=== PATIENT | female | born 1975 ===

== ENCOUNTER 2016-07-02 22:55 | Emergency (ER) | payer SELFPAY ==
[~2016-07-02] VITALS: Ht 157.5 cm; Wt 59.0 kg
[2016-07-02 23:01] VITALS: BP 137/94; PULSE 122; RESP 24; O2SAT 98
[2016-07-03 01:02] VITALS: BP 132/64; PULSE 78; RESP 14; O2SAT 96
[2016-07-03 01:26] LABS: BASOPHILS % (AUTO) 0.2 % (0-3); EOSINOPHILS % (AUTO) 0.1 % (0-5); MONOCYTES % (AUTO) 4.7 % (4-12); Mean Corpuscular Hemoglobin 25.5 pg (27.0-35.0); Mean Corpuscular Volume 78.1 fL (81-100); NEUTROPHILS % (AUTO) 81.1 % (40-74); Platelet Count 408 bil/L (150-400)
--- NOTE | 2016-07-03 02:27 | ED.REPORT ---
HPI-Abd Pain F 40 and Over Date of Service Jul 03, 2016 ED Provider: Wan Jeffers MD 41 year old female with a history of opioid dependence on Suboxone presents to the ED with five days of nausea and vomiting. Associated symptom of abdominal pain. Patient denies diarrhea. She does not voice any further medical complaints. Nursing Notes Stated Complaint: FLU SYMPTOMS Chief Complaint: FLU/Cold Symptoms Nursing Notes Reviewed: Yes Allergies: Coded Allergies: Sulfa (Sulfonamide Antibiotics) (Unverified Allergy, Unknown, 09/15/10) clindamycin (Unverified Allergy, Unknown, 09/15/10) Uncoded Allergies: ERYTHROMYCIN (Allergy, Intermediate, hives, 06/08/12) Scheduled PRN Ondansetron ODT (Ondansetron ODT) 8 Mg Tab.rapdis 8 MG PO QID PRN PRN For Nausea General Time Seen by MD: 01:52 Chief Complaint Nausea, Vomiting moderate Hx Obtained From: Patient Arrived By: Walk-in Sudden in Onset?: No Onset Occurred: 5 days ago Symptom Duration: Since onset Location: : Abdomen lower Quality: Painful Severity: Current: Moderate Severity: Maximum: Moderate Past Medical History Past Medical History Opioid dependence on Suboxone Smoking History Unknown if Ever Smoker Social History Other Social History: Good social support Ambulatory Status Independent Unable to Obtain History Past medical history Review of Systems Constitutional: Reports: Fatigue, Malaise Respiratory: Denies: Non-productive cough, Shortness of breath GI: Reports: Abdominal pain, Nausea, Vomiting, Denies: Diarrhea Female: Denies: Dysuria, Flank pain Complete sys rev & neg: except as marked. Neurologic: Denies: Headache Physical Exam Vital Signs Vital Signs (First) Date Time Temp Pulse Resp B/P Pulse Ox O2 Delivery O2 Flow Rate FiO2 07/02/16 23:01 36.9 122 24 137/94 98 Room Air Initial VS: Reviewed, Vital signs abnormal Head / Eyes: Atraumatic, Normocephalic Neck: Supple, Non-tender, Full range of motion Extremities: Vascular intact, Neuro intact, No swelling, No tenderness Neurologic: Alert, Oriented, Nonfocal General/Constitutional: Awake, Alert, Well developed Hoarse voice. Respiratory / Chest: Breath sounds NL, Breath sounds = bilat, No respiratory distress, No rales, No rhonchi, No wheezing, No stridor Cardiovascular: Regular rhythm, No gallop, No murmurs, No rubs Heart Rate / Rhythm: Positive: Tachycardia Abdomen: Soft, No guarding, No rebound, No distention Tenderness/Guarding/Rebound: Positive: Tender diffuse, Tender epigastric Back: Inspection NL, Non-tender, No CVA tenderness ENT: Airway patent, Pharynx NL Mouth: Positive: Mucous membranes dry Interpretation & Diagnostics Lab Results Interpretation Result Diagram: 07/03/16 0100 07/03/16 0100 Test 07/03/16 01:00 07/03/16 05:50 White Blood Count 15.8th/mm3 (3.8-10.1) Red Blood Count 4.62mil/mm3 (3.90-5.20) Hemoglobin 11.8g/dL (12.0-15.6) Hematocrit 36.1% (35.0-46.0) Mean Corpuscular Volume 78.1fL (81-100) Mean Corpuscular Hemoglobin 25.5pg (27.0-35.0) Mean Corpuscular Hemoglobin Concent 32.7% (32.0-37.0) Red Cell Distribution Width 16.0% (12.3-15.4) Platelet Count 408bil/L (150-400) Neutrophils (%) (Auto) 81.1% (40-74) Lymphocytes (%) (Auto) 13.6% (14-46) Monocytes (%) (Auto) 4.7% (4-12) Eosinophils (%) (Auto) 0.1% (0-5) Basophils (%) (Auto) 0.2% (0-3) Sodium Level 133mEq/L (134-144) Potassium Level 3.3mEq/L (3.5-5.2) Chloride Level 96mEq/L (97-108) Carbon Dioxide Level 20mmol/L (18-29) Blood Urea Nitrogen 20mg/dL (6-24) Creatinine 0.44mg/dL (0.57-1.00) Estimat Glomerular Filtration Rate 227mL/min (>59) Glucose Level 130mg/dL (60-99) Calcium Level 8.2mg/dL (8.5-10.1) Magnesium Level 2.0mg/dL (1.6-2.6) Total Bilirubin 0.3mg/dL (0.0-1.2) Aspartate Amino Transf (AST/SGOT) 13U/L (0-50) Alanine Aminotransferase (ALT/SGPT) 10U/L (0-32) Alkaline Phosphatase 78U/L (25-150) Total Protein 7.6g/dL (6.4-8.4) Albumin 3.6g/dL (3.4-5.0) Lipase 17U/L (13-60) Urine Color Bloody (YELLOW) Urine Appearance Cloudy (CLEAR,HAZY) Urine pH 7.0 (5.0-8.0) Urine Specific [place] 1.010 (1.003-1.035) Urine Protein Negativemg/dL (NEG,TRACE) Urine Glucose (UA) Negativemg/dL (NEGATIVE) Urine Ketones 40mg/dL (NEGATIVE) Urine Occult Blood Large (NEGATIVE) Urine Nitrite Negative (NEGATIVE) Urine Bilirubin Negative (NEGATIVE) Urine Urobilinogen Normalmg/dL (NORMAL) Urine Leukocyte Esterase Negative (NEGATIVE) Urine RBC >50/hpf (0-2) Urine WBC 0-5/hpf (0-5) Urine Epithelial Cells Few/hpf (NONE-MOD) Urine Crystals None seen (NONE SEEN) Urine Bacteria Few/hpf (NONE-FEW) Urine Hyaline Casts None/lpf (NONE) Urine Granular Casts None seen (NONE SEEN) Urine Waxy Casts None seen (NONE SEEN) Urine Red Blood Cell Casts None seen (NONE SEEN) Urine White Blood Cell Casts None seen (NONE SEEN) Urine Mucus None seen (None Seen) Urine Trichomonas None seen (NONE SEEN) Urine Yeast None (NONE SEEN) Urinalysis Comment None Urine Culture Reflexed Not indicated Lab Results Interpretation: Elevated white blood count. Hypokalemia. Urinalysis does show some red cells, but she is on her menses. ECG Interpretation ECG Interpretation: Sinus rhythm normal, rate 83. Time: 02:55 Interpreted by: ED physician Normal ECG Interpretation: Normal ECG w/ rate of..., Normal rate, Normal sinus rhythm, No acute ischemic changes Re-Eval/Medical Decision Med Decision/Clinical Course 41-year-old patient on Suboxone presents with nausea vomiting and general malaise of 4-5 days duration. Influenza is negative. She was given Zofran and IV hydration. She is being discharged home to follow-up with her regular doctor. Source of Hx: Old records Counseled Regarding: Diagnosis, Lab results, Need for follow-up, When/why to return to ED Discharge & Departure Primary Impression: Influenza-like illness Disposition: Home Discharge Condition All VS Reviewed: Yes Condition: Stable Patient Instructions: Dehydration (ED) Additional Instructions: You have a nonspecific viral gastroenteritis. Influenza is negative. You are dehydrated and have low potassium. Ondansetron (Zofran) 8 mg ODT, 1 tablet dissolved orally 3-4 times daily as needed, #30 prescription written. Continue your Suboxone. Drink plenty of fluids, including fruit juices to help replenish your potassium. Referrals: Shwetha Olivier PA-C (PCP) Scribe Attestation Portions of this note were transcribed by Jay Tolentino. I, Dr. Jeffers, personally performed the history, physical exam and medical decision-making; I reviewed and confirmed the accuracy of the information in the transcribed note. Signed by: Anitra Irene. 07/03/2016, 0700 copies to: Shwetha Olivier PA-C, Howard L MD Jul 03, 2016 02:27 Garry Mann Jul 03, 2016 02:56 JAY TOLENTINO Jul 03, 2016 04:36
[2016-07-03] MEDS ORDERED: 0.9% Sodium Chloride 1,000 ML IV ONE ×2 (02:28→05:50)
[2016-07-03] MEDS ORDERED: Ondansetron 2 mg/mL 2 mL Inj IVPUSH PRN (02:30)
[2016-07-03] MEDS ORDERED: HYDROmorphone 0.5 mg/0.5 mL iSecure Syringe IVPUSH PRN (02:30)
[2016-07-03 03:40] VITALS: BP 142/74; PULSE 76; RESP 14; O2SAT 98
[2016-07-03] MEDS ORDERED: Promethazine Inj 25 MG in Dextrose 5%-Pha MIX 50 ML IV ONE (05:50)
[2016-07-03] MEDS ORDERED: Potassium Chloride 20 mEq SR Tablet PO ONE (05:55)
[2016-07-03 06:20] VITALS: BP 138/88; PULSE 88; RESP 16; O2SAT 98
[2016-07-03 06:46] LABS: APPEARANCE,URINE CLOUDY (CLEAR,HAZY); COLOR,URINE BLOODY (YELLOW); OCCULT BLOOD,URINE LARGE (NEGATIVE); UROBILINOGEN,URINE NORMAL (NORMAL)
[2016-07-03] MEDS ORDERED: ONDA8TAB10 PO (07:09)
[2016-07-03 07:34] VITALS: BP 142/87; PULSE 82; RESP 16; O2SAT 97
== END 2016-07-03 07:10 | disposition home or self-care (01) ==
LOC: SED 22:55
DX: J10.1 Influenza due to other identified influenza virus with other respiratory manifestations (principal); R10.84 Generalized abdominal pain; R10.13 Epigastric pain
CPT/HCPCS: 36415; 80053; 81000; 81025; 83690; 83735; 85025; 87804; 93005; 96361; 96374; 96375; 99285; J2405; J7030